=== PATIENT | male | born 1960 | race Caucasian/White ===

== ENCOUNTER 2016-04-28 11:59 | Emergency (ER) | payer BC ==
[2016-04-28] MEDS ORDERED: Diphtheria,Pertussis(Acell),Tetanus Vaccine 0.5 ML SDV IM ONE (12:32)
--- NOTE | 2016-04-28 12:43 | EDM.PDOC ---
ED HPI Trauma - General Time Seen by Provider: 04/28/16 12:22 Source: Reports: Patient History Limitations: Reports: No limitations - History of Present Illness INITIAL COMMENTS - FREE TEXT/NARRATIVE: Patient presents with injury to right hand that happened at 0600 this morning when he swatted at his dog. His dog turned and he hit a tooth. He isn't sure when his last tetanus update was. It didn't bleed all that much. No other injuries or problems. Allergies/ADRs: Allergies No Known Drug Allergies Allergy (Verified 07/17/14 12:06) none Home Medications: Ambulatory Orders . [No Known Home Meds] 07/17/14 [Confirmed 07/17/14] Past Medical History - Past Health History Medical/Surgical History: Denies Medical/Surgical History Social & Family History - Tobacco Use Smoking Status *Q: Current Every Day Smoker Years of Tobacco use: 30 Used Tobacco, but Quit: No Second Hand Smoke Exposure: Yes - Alcohol Use Days Per Week of Alcohol Use: 7 Number of Drinks Per Day: 10 Total Drinks Per Week: 70 - Recreational Drug Use Recreational Drug Use: No Review of Systems - Review of Systems Review Of Systems: ROS reveals no pertinent complaints other than HPI. Trauma Exam - Physical Exam Exam: See Below Exam Limited By: No limitations General Appearance: Reports: alert, WD/WN, no apparent distress Head: Reports: atraumatic, normocephalic Eyes: bilateral eye: EOMI, normal inspection, PERRL Ears: Reports: normal external exam, hearing grossly normal Nose: Reports: normal inspection Throat/Mouth: Reports: Normal voice, No airway compromise Neck: Reports: non-tender, full range of motion Respiratory Exam: Reports: no respiratory distress Cardiovascular: Reports: regular rate, rhythm Extremities: Reports: other (right hand has a 2.0 cm jagged laceration along the ulnar border. Distal CMS is intact.) Neurologic: Reports: no motor/sensory deficits, alert, oriented x 3 Skin: Reports: Normal color, Warm/dry ED TRAUMA EXTREMITY PROCEDURES - Laceration/Wound Repair Right Medial Hand Lac/wound length in cm: 2.5 Appearance: subcutaneous, irregular Distal NVT: neuro & vascular intact, no tendon injury Local anesthesia - Lidocaine (Xylocaine): 2% with epi Local anesthetic volume: 3cc Skin prep: chlorhexidine (hibiciens) (Soaked in solution for 20 minutes and after anesthetizing, irrigated the wound with 800 cc of hibiclens solution followed by 350 cc of saline.) Saline irrigation (cc's): 300 Exploration/Debridement/Repair: wound explored, in a bloodless field, explored to base, minimal debridement Closed with: sutures Suture size: other (5-0) Suture type: nylon, interrupted (closed loosely to facilitate drainage from both ends if needed.), simple Drain placement: No Sterile dressing applied: nurse Tetanus status addressed: Yes Complications: No Course - Orders/Labs/Meds Orders: Active Orders 24 hr Category Date Time Status Vaccines to be Administered [RC] PER UNIT ROUTINE Care 04/28/16 12:36 Ordered Meds: Medications Discontinued Medications Generic Name Dose Route Start Last Admin Trade Name Freq PRN Reason Stop Dose Admin Diphtheria/Tetanus/Acell Pertussis 0.5 ml 04/28/16 12:32 Adacel IM 04/28/16 12:33 .ONCE ONE - Re-Assessments/Exams Free Text/Narrative Re-Assessment/Exam: 04/28/16 14:06 Patient remained stable throughout ER course. Discussed treatment plan and infection control with patient. TDAP was administered. Initially I hoped to avoid closure since it was a dog bite but after examination, I deemed it necessary to loosely close to promote faster healing and better results. I discussed this with patient also. Pt discharged in stable condition. Departure - Departure Time of Disposition: 13:56 Disposition: Home, Self-Care 01 Condition: good Clinical Impression: Dog bite of extremity Instructions: Animal Bite, [id number] Additional Instructions: 1. Take the antibiotic as directed and change dressing daily until dry with no drainage then may leave uncovered if kept clean and dry. 2. Watch for signs of infection, including, fever, drainage or increasing redness or swelling. 3. Recheck ROSA if any sign of infection. 4. Follow up with your PCP in ten days for suture removal. - My Orders Last 24 Hours: My Active Orders 04/28/16 12:36 Vaccines to be Administered [RC] PER UNIT ROUTINE - Assessment/Plan Last 24 Hours: My Active Orders 04/28/16 12:36 Vaccines to be Administered [RC] PER UNIT ROUTINE
[2016-04-28 13:11] VITALS: BP 153/90
[2016-04-28] MEDS ORDERED: Lidocaine 2% with EPINEPHrine 1:200,000 20 ML SDV ONE (13:14)
[2016-04-28] MEDS ORDERED: Lidocaine 1% with EPINEPHrine 1:100,000 20 ML MDV INJECT ONE (13:57)
[2016-04-28] MEDS ORDERED: Lidocaine 2% with EPINEPHrine 1:200,000 20 ML SDV INJECT ONE (14:00)
== END 2016-04-28 14:10 | disposition home or self-care (01) ==
LOC: MERGE 11:59 → KA.ED 11:59
DX: S61.451A Open bite of right hand, initial encounter (principal); W54.0XXA Bitten by dog, initial encounter; F17.210 Nicotine dependence, cigarettes, uncomplicated
CPT/HCPCS: 12001; 90471; 90715; 99283

== ENCOUNTER 2016-08-20 18:58 | Emergency (ER) | payer BC ==
[~2016-08-20 18:58] MED LIST: Sodium Chloride 0.9% 3,000 ML IV ONE
[2016-08-20] MEDS: EPINEPHrine 1:10,000 1 MG/10 ML Syringe IVPUSH PRN ×11 (19:02→19:49)
[2016-08-20] MEDS ORDERED: Atropine 0.4 MG/ML SDV IVPUSH ONE (19:10)
[2016-08-20] MEDS ORDERED: EPINEPHrine 1 MG in Dextrose 5% in Water 100 ML IV SCH ×2 (19:30)
[2016-08-20 20:07] LABS: CHLORIDE,CL 96 mmol/L (98-115); SODIUM,NA 132 mmol/L (136-145)
[2016-08-20] MEDS ORDERED: EPINEPHrine 4 MG in Dextrose 5% in Water 250 ML IV SCH ×2 (22:00)
[2016-08-20] MEDS ORDERED: Sodium Chloride 0.9% 1,000 ML ONE ×2 (22:42→22:43)
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
== END 2016-08-20 21:10 | disposition critical access hospital (66) ==
LOC: KA.ED 18:58
DX: I46.9 Cardiac arrest, cause unspecified (principal); F10.929 Alcohol use, unspecified with intoxication, unspecified; F17.210 Nicotine dependence, cigarettes, uncomplicated
CPT/HCPCS: 31500; 36415; 71010; 80053; 83605; 85025; 92950; 96361; 96374; 96375; 96376; 99291; G0480; J0171; J0461; J7030; J7060